=== PATIENT | female | born 1950 | race Two or more races ===

== ENCOUNTER 2018-09-18 11:12 | Day surgery (SDC) | payer MEDICARE, MEDICAID ==
[2018-09-18] MEDS ORDERED: IV LACTATED RINGERS SOLUTION 1,000 ML BAG IV ONE (11:13)
[2018-09-18] MEDS ORDERED: PROPOFOL 200 MG/20 ML BOTTLE IV ONE (11:13)
[2018-09-18] MEDS ORDERED: LIDOCAINE HCL 2% 20 ML VIAL MC ONE (11:13)
[2018-09-18 12:38] LABS: BASOPHILS % (AUTO) 0.4 % (0.0-2.0); EOSINOPHILS # (AUTO) 0.1 K/uL (0.0-0.7); EOSINOPHILS % (AUTO) 2.5 % (0.0-7.0); HEMATOCRIT 40.9 % (31.2-41.9); HEMOGLOBIN 13.6 g/dL (10.9-14.3); LYMPHOCYTES # (AUTO) 1.7 K/uL (20.0-40.0); MEAN CORPUSCULAR HEMOGLOBIN 29.8 uug (24.7-32.8); MEAN CORPUSCULAR HGB CONC 33 g/dL (32.3-35.6); MEAN CORPUSCULAR VOLUME 89.6 fL (75.5-95.3); MONOCYTES # (AUTO) 0.4 K/uL (2.0-10.0); MONOCYTES % (AUTO) 7.2 % (0.0-11.0); NEUTROPHILS # (AUTO) 3.2 K/uL (1.8-8.9); NEUTROPHILS % (AUTO) 57.9 % (38.5-71.5); PLATELET COUNT (AUTO) 242 K/uL (179-408); RED BLOOD CELL COUNT(AUTO) 4.56 MIL/uL (3.63-4.92); WHITE BLOOD COUNT (AUTO) 5.5 K/uL (3.8-11.8)
[2018-09-18 12:41] LABS: *BILIRUBIN,URIN NEGATIVE (NEGATIVE); *BLOOD, URINE Trace-intact (NEGATIVE); *CLARITY,URINE CLEAR (CLEAR); *COLOR,URINE YELLOW (YELLOW); *KETONES,URINE NEGATIVE (NEGATIVE); *UROBILINOGEN,URINE 0.2 E.U./dl (NORMAL); LEUKOCYTE ESTERASE ,URINE NEGATIVE (NEGATIVE); NITRITE, URINE NEGATIVE (NEGATIVE); PH,URINE 8.5 (5.0-8.0); UGLUCOSE NEGATIVE (NEGATIVE)
[2018-09-18 12:43] LABS: BACTERIA,URINE FEW /HPF (NONE SEEN); RBC,URINE 0-3 /HPF (0-3); SQUAMOUS EPITHELIAL CELL,UR FEW /HPF (NONE SEEN); WBC,URINE 0-3 /HPF (0-3)
[2018-09-18 12:45] LABS: CREATININE 0.7 mg/dL (0.6-1.3); POTASSIUM 4.3 mmol/L (3.5-5.1)
[2018-09-18 12:51] LABS: BILIRUBIN,TOTAL 0.4 mg/dL (0.2-1.0); TOTAL PROTEIN, SERUM 7.8 g/dL (6.4-8.2)
[2018-09-18] MEDS ORDERED: PROPOFOL 200 MG/20 ML BOTTLE ONE (14:20)
== END 2018-09-18 15:35 | disposition home or self-care (01) ==
LOC: DS 11:12
PROVIDERS: ATTEND Internal Medicine Gastroenterology
DX: K64.8 Other hemorrhoids (principal); K62.4 Stenosis of anus and rectum; K62.89 Other specified diseases of anus and rectum; E03.9 Hypothyroidism, unspecified; K21.9 Gastro-esophageal reflux disease without esophagitis; G89.29 Other chronic pain; Z79.899 Other long term (current) drug therapy; Z98.890 Other specified postprocedural states; I51.7 Cardiomegaly; Z79.01 Long term (current) use of anticoagulants; R19.4 Change in bowel habit
CPT/HCPCS: 36415; 45378; 71045; 80053; 81001; 85025; 85730; 93005; J3490; J7120 ×2; A4217; A4663

== ENCOUNTER 2021-05-13 09:24 | Inpatient (IN) | payer MEDICARE, OTHER ==
[~2021-05-13] VITALS: Ht 152.4 cm; Wt 82.6 kg
--- NOTE | 2021-05-13 09:29 | NUR ---
Patient brought in by [facility] transport for layo-psyche, no behaviors noted at this time, MD at bedside for assessment
[2021-05-13 10:17] LABS: MEAN CORPUSCULAR HEMOGLOBIN 31.6 uug (24.7-32.8); MEAN CORPUSCULAR VOLUME 93.6 fL (75.5-95.3); PLATELET COUNT (AUTO) 239 K/uL (179-408)
[2021-05-13 10:23] LABS: CARBON DIOXIDE 30 mmol/L (21-32); CHLORIDE 103 mmol/L (98-107); CREATININE 0.8 mg/dL (0.6-1.3); GLUCOSE 130 mg/dL (74-106); POTASSIUM 4.1 mmol/L (3.5-5.1); UREA NITROGEN, BLOOD 15 mg/dL (7-18)
[2021-05-13 10:29] LABS: ALANINE AMINOTRANSFERASE 53 U/L (14-59); ALKALINE PHOSPHATASE 59 U/L (50-136); ASPARTATE AMINOTRANSFERASE 28 U/L (15-37); BILIRUBIN,DIRECT 0.1 mg/dL (0.0-0.2); BILIRUBIN,TOTAL 0.3 mg/dL (0.2-1.0); CREATINE KINASE, TOTAL 727 U/L (26-192); TOTAL PROTEIN, SERUM 6.7 g/dL (6.4-8.2)
[2021-05-13 10:30] LABS: ACETAMINOPHEN < 2.0 ug/mL (10-30)
[2021-05-13 10:33] LABS: ETHANOL < 3 MG/DL (0-0)
--- NOTE | 2021-05-13 10:33 | NUR ---
patient noted resting in bed at this time, awaiting urine sample
[2021-05-13 11:35] LABS: *BILIRUBIN,URIN NEGATIVE (NEGATIVE); *BLOOD, URINE TRACE (NEGATIVE); *CLARITY,URINE CLEAR (CLEAR); *COLOR,URINE YELLOW (YELLOW); *KETONES,URINE NEGATIVE (NEGATIVE); *UROBILINOGEN,URINE 0.2 E.U./dl (NORMAL); LEUKOCYTE ESTERASE ,URINE NEGATIVE (NEGATIVE); NITRITE, URINE NEGATIVE (NEGATIVE); PH,URINE 8.5 (5.0-8.0); UGLUCOSE NEGATIVE (NEGATIVE)
[2021-05-13 11:45] LABS: *AMPHETAMINE, URINE NEGATIVE (NEGATIVE); *CANNABINOID, URINE NEGATIVE (NEGATIVE); *COCCAINE, URINE NEGATIVE (NEGATIVE); *OPIATE, URINE NEGATIVE (NEGATIVE); *PHENCYCLIDINE SCREEN,URINE NEGATIVE (NEGATIVE)
[2021-05-13] MEDS ORDERED: CALC1TAB30 PO (12:13)
[2021-05-13] MEDS ORDERED: SOLI10TA2 PO (12:13)
[2021-05-13] MEDS ORDERED: CARV3.122 PO (12:13)
[2021-05-13] MEDS ORDERED: DOCU100C36 PO (12:13)
[2021-05-13] MEDS ORDERED: LISI-782 PO (12:13)
[2021-05-13] MEDS ORDERED: ASPI81TA31 PO (12:13)
[2021-05-13] MEDS ORDERED: AMOX-430 PO (12:13)
[2021-05-13] MEDS ORDERED: SIMV10TA98 PO (12:13)
[2021-05-13] MEDS ORDERED: SENN1TAB77 PO (12:13)
[2021-05-13] MEDS ORDERED: THYR60TA2 PO (12:13)
[2021-05-13] MEDS ORDERED: OMEP40CA21 PO (12:13)
[2021-05-13] MEDS ORDERED: SERT25TA PO (12:13)
--- NOTE | 2021-05-13 13:30 | NUR ---
Awaiting returned call to give report to U
[2021-05-13 14:26] LABS: BACTERIA,URINE NONE SEEN /HPF (NONE SEEN); RBC,URINE 0-3 /HPF (0-3); SQUAMOUS EPITHELIAL CELL,UR FEW /HPF (NONE SEEN); URINE AMORPHOUS PHOSPHATES FEW /HPF; WBC,URINE 0-3 /HPF (0-3)
--- NOTE | 2021-05-13 15:00 | NUR ---
IM ativan given in left deltoid
[2021-05-13] MEDS ORDERED: LORAZEPAM 2 MG/1 ML VIAL ONE (15:20)
--- NOTE | 2021-05-13 15:20 | NUR ---
Report given to [facility]
[2021-05-13 16:00] VITALS: BP 107/54
[2021-05-13] MEDS ORDERED: LORAZEPAM 2 MG/1 ML VIAL IM ONE (16:00)
--- NOTE | 2021-05-13 16:10 | NUR ---
Pt. admitted to [facility] psych, under care of Dr. hinson and josefina Belongs List completed and all belongs sent with patient
--- NOTE | 2021-05-13 17:00 | NUR ---
Gps/Waterworks Supervisor-Received report from [facility]. Patient arrived from the unit via wheel chair. Alert, oriented x 4, somewhat forgetful. Upon face to face interactions with patient noted > anxious, figity, closes eye and appeared sleepy, as noted pt. received ativan 1 mg IM in the ER. Patient was able to give informations during her admission. She claimed she took 20 pills of Angel Fire 10/325 mg r/t to too much pain on her right hip she cant take anymore/Claimed there is a caregiver that comes few hours to help her . Noted edema to her left lower ext. , wearing elastic compression stocking on her left leg r/t to lymphedema . Denies S.I. at this time. Patient wants to go to assigned room claimed she's just feeling tired, oriented to the unit settings.
[2021-05-13] MEDS ORDERED: MAGNESIUM HYDROXIDE 30 ML LIQUID UDC PO PRN (20:00)
[2021-05-13 20:19] VITALS: BP 130/78
[2021-05-13] MEDS: TEMAZEPAM 7.5 MG CAPSULE PO PRN (23:13)
--- NOTE | 2021-05-14 06:15 | NUR ---
Slept 3.45 hours only. Always seen ambulating in the hallways or in her room. Restoril was given as needed and ordered with help.
[2021-05-14 08:09] VITALS: BP 121/64
[2021-05-14 08:17] LABS: HEMATOCRIT 39.1 % (31.2-41.9); MEAN CORPUSCULAR HEMOGLOBIN 31.7 uug (24.7-32.8); MEAN CORPUSCULAR VOLUME 93.5 fL (75.5-95.3); PLATELET COUNT (AUTO) 239 K/uL (179-408)
[2021-05-14 08:44] LABS: THYROID STIMULATING HORMONE 6.127 mIU/mL (0.358-3.740)
[2021-05-14 09:02] LABS: BILIRUBIN,TOTAL 0.3 mg/dL (0.2-1.0); CREATININE 0.8 mg/dL (0.6-1.3); MAGNESIUM 2.3 mg/dL (1.8-2.4); PHOSPHOROUS 3.2 mg/dL (2.5-4.9); POTASSIUM 4.3 mmol/L (3.5-5.1); TOTAL PROTEIN, SERUM 6.9 g/dL (6.4-8.2)
[2021-05-14] MEDS: CALCIUM CARB/VITAMIN D 500MG-200UNITS TABLET PO SCH (09:08)
[2021-05-14] MEDS: DOCUSATE SODIUM 100 MG CAPSULE PO SCH (09:08)
[2021-05-14] MEDS: THYROID 60 MG TABLET PO SCH (09:09)
[2021-05-14] MEDS: ASPIRIN 81 MG TAB.CHEW PO SCH (09:09)
[2021-05-14] MEDS: LISINOPRIL 5 MG TABLET PO SCH (09:09)
[2021-05-14] MEDS: CARVEDILOL 3.125 MG TABLET PO SCH ×2 (09:09→17:48)
[2021-05-14] MEDS: SENNOSIDES/DOCUSATE SODIUM TABLET PO SCH ×2 (09:10→17:48)
[2021-05-14] MEDS: AMOXICILLIN-CLAVUL 875-125MG TABLET PO SCH ×2 (09:10→17:48)
[2021-05-14] MEDS: OXYBUTYNIN CHLORIDE 5 MG TABLET PO SCH ×3 (09:10→17:48)
[2021-05-14] MEDS: DIVALPROEX 250 MG TABLET.DR PO SCH ×2 (12:19→20:20)
[2021-05-14 17:23] VITALS: BP 111/75
[2021-05-14] MEDS ORDERED: BIMA2.5D5 EACHEYE (18:04)
[2021-05-14 20:08] VITALS: BP 106/67
[2021-05-14] MEDS: TEMAZEPAM 7.5 MG CAPSULE PO PRN (21:37)
[2021-05-15] MEDS: THYROID 60 MG TABLET PO SCH (06:27)
[2021-05-15 07:59] VITALS: BP 138/76
[2021-05-15] MEDS: ASPIRIN 81 MG TAB.CHEW PO SCH (08:17)
[2021-05-15] MEDS: DOCUSATE SODIUM 100 MG CAPSULE PO SCH (08:17)
[2021-05-15] MEDS: AMOXICILLIN-CLAVUL 875-125MG TABLET PO SCH ×2 (08:18→16:53)
[2021-05-15] MEDS: SENNOSIDES/DOCUSATE SODIUM TABLET PO SCH ×2 (08:18→16:53)
[2021-05-15] MEDS: CALCIUM CARB/VITAMIN D 500MG-200UNITS TABLET PO SCH (08:18)
[2021-05-15] MEDS: LISINOPRIL 5 MG TABLET PO SCH (08:19)
[2021-05-15] MEDS: DIVALPROEX 250 MG TABLET.DR PO SCH ×2 (08:20→16:53)
[2021-05-15] MEDS: CARVEDILOL 3.125 MG TABLET PO SCH ×2 (08:20→16:54)
[2021-05-15] MEDS: OXYBUTYNIN CHLORIDE 5 MG TABLET PO SCH ×3 (08:20→16:53)
--- NOTE | 2021-05-15 14:01 | NUR ---
GPS: Nursing Notes: Mood Disturbance: Depression: Patient is awake and responding to her name, poor impulse control, argumentative, overly demanding, gets easily irritable when redirected, anxious affect, calling her sister and asking her to bring her more cloth and wigs to the unit, setting limits, redirected, but continue to be argumentative, not following directions from staff, needs a lot of prompting to be compliant with her medications, depressed mood and anxious affect, unable to formulate a viable plan for self care, encouraged to participate in therapeutic groups, in and out of therapeutic groups, continue to monitor for safety, continue with treatment plan.
[2021-05-15 16:33] VITALS: BP 126/72
[2021-05-15] MEDS: MAG HYDROX/AL HYDROX/SIMETH 30 ML LIQUID UDC PO PRN (19:52)
[2021-05-15 20:15] VITALS: BP 132/70
[2021-05-15] MEDS: BIMATOPROST 0.01% EACHEYE SCH (20:47)
[2021-05-15] MEDS: LORAZEPAM 0.5 MG TABLET PO PRN (20:47)
[2021-05-15] MEDS: DIVALPROEX 500 MG TABLET.DR PO SCH (20:48)
[2021-05-15] MEDS ORDERED: risperiDONE 0.5 MG TABLET PO SCH (21:00)
[2021-05-15] MEDS: TEMAZEPAM 7.5 MG CAPSULE PO PRN (21:44)
--- NOTE | 2021-05-16 04:30 | NUR ---
Received patient at the start of the shift, anxious and needy. Multiple requests from the patient for a variety of things. The patient is hyperverbal and is a poor listener . This senior writer was continually cut off by the patient when attempting to answer a question or explain something. The patient has a strong sense of entitlement, and has difficulty following the unit rules. When asked about her SA , the patient minimizes the topic and is quick to change the subject. This senior writer was able to make a verbal contract for safety with the patient for the shift. Frequent rounding done and no acute issues noted so far.
[2021-05-16] MEDS: THYROID 60 MG TABLET PO SCH (06:24)
[2021-05-16 07:54] VITALS: BP 120/54
[2021-05-16] MEDS: CALCIUM CARB/VITAMIN D 500MG-200UNITS TABLET PO SCH (08:23)
[2021-05-16] MEDS: OXYBUTYNIN CHLORIDE 5 MG TABLET PO SCH ×3 (08:23→16:12)
[2021-05-16] MEDS: DIVALPROEX 250 MG TABLET.DR PO SCH (08:23)
[2021-05-16] MEDS: AMOXICILLIN-CLAVUL 875-125MG TABLET PO SCH ×2 (08:23→16:12)
[2021-05-16] MEDS: ASPIRIN 81 MG TAB.CHEW PO SCH (08:23)
[2021-05-16] MEDS: SENNOSIDES/DOCUSATE SODIUM TABLET PO SCH ×2 (08:24→16:22)
[2021-05-16] MEDS: LISINOPRIL 5 MG TABLET PO SCH (08:24)
[2021-05-16] MEDS: CARVEDILOL 3.125 MG TABLET PO SCH ×2 (08:24→16:22)
[2021-05-16] MEDS: DOCUSATE SODIUM 100 MG CAPSULE PO SCH (08:24)
[2021-05-16] MEDS: OLANZAPINE 2.5 MG TABLET PO SCH (11:11)
--- NOTE | 2021-05-16 11:47 | NUR ---
SPENCER Initial Discharge Planning Patient currently resides [place] home at [address], [place] [address] ([phone]). SPENCER met with pt to discuss discharge planning and pt reports she wants to go home though she states her doctor also discussed rehab option. SPENCER will f/u with pt's brother Morgan ([phone]) and Dr. Cm to discuss discharge.
--- NOTE | 2021-05-16 11:49 | NUR ---
SW Family Contact SW left a voicemail for patient's brother Morgan ([phone]) requesting call back to discuss treatment and discharge plan. Waiting for a call back.
[2021-05-16 16:29] VITALS: BP 125/67
[2021-05-16] MEDS ORDERED: INFLUENZA VACCINE 2021-2022 0.5 ML DISP.SYRIN IM ONE (18:15)
[2021-05-16 20:10] VITALS: BP 103/52
[2021-05-16] MEDS: DIVALPROEX 500 MG TABLET.DR PO SCH (20:31)
[2021-05-16] MEDS: BIMATOPROST 0.01% EACHEYE SCH (20:39)
[2021-05-16] MEDS ORDERED: OLANZAPINE 5 MG TABLET PO SCH (21:00)
[2021-05-16] MEDS: MAG HYDROX/AL HYDROX/SIMETH 30 ML LIQUID UDC PO PRN (21:34)
[2021-05-16] MEDS: TEMAZEPAM 7.5 MG CAPSULE PO PRN (21:34)
[2021-05-17] MEDS: LORAZEPAM 0.5 MG TABLET PO PRN (00:06)
[2021-05-17] MEDS: THYROID 60 MG TABLET PO SCH (06:16)
[2021-05-17 07:30] VITALS: BP 133/57
[2021-05-17] MEDS: OLANZAPINE 2.5 MG TABLET PO SCH (08:46)
[2021-05-17] MEDS: CALCIUM CARB/VITAMIN D 500MG-200UNITS TABLET PO SCH (08:46)
[2021-05-17] MEDS: OXYBUTYNIN CHLORIDE 5 MG TABLET PO SCH ×3 (08:46→17:10)
[2021-05-17] MEDS: LISINOPRIL 5 MG TABLET PO SCH (08:46)
[2021-05-17] MEDS: ASPIRIN 81 MG TAB.CHEW PO SCH (08:46)
[2021-05-17] MEDS: CARVEDILOL 3.125 MG TABLET PO SCH ×2 (08:46→17:11)
[2021-05-17] MEDS: DIVALPROEX 250 MG TABLET.DR PO SCH (08:46)
[2021-05-17] MEDS: SENNOSIDES/DOCUSATE SODIUM TABLET PO SCH ×2 (08:47→17:00)
[2021-05-17] MEDS: DOCUSATE SODIUM 100 MG CAPSULE PO SCH (08:47)
[2021-05-17] MEDS: MAG HYDROX/AL HYDROX/SIMETH 30 ML LIQUID UDC PO PRN ×3 (10:17→22:37)
[2021-05-17 15:09] VITALS: BP 109/58
[2021-05-17 20:00] VITALS: BP 101/59
[2021-05-17] MEDS: DIVALPROEX 500 MG TABLET.DR PO SCH (20:58)
[2021-05-17] MEDS ORDERED: OLANZAPINE 5 MG TABLET PO SCH (21:00)
[2021-05-17] MEDS: BIMATOPROST 0.01% EACHEYE SCH (21:03)
[2021-05-17] MEDS: TEMAZEPAM 7.5 MG CAPSULE PO PRN (22:37)
[2021-05-18] MEDS: THYROID 60 MG TABLET PO SCH (06:29)
--- NOTE | 2021-05-18 06:33 | NUR ---
GPS: Pt.slept for only 3.30 last night despite receiving Restoril med for insomnia. Remains needy,demanding,easily irritable when her wishes are not granted immediately. Insight and judgement remains impaired. Safety emphasized. Will continue to re-direct prn.
--- NOTE | 2021-05-18 07:30 | NUR ---
Received report from OLIVIA Ventura. All questions, comments, and concerns addressed. Received patient awake, alert and oriented in her assigned bed. Bed is in low and locked position.
[2021-05-18 07:48] VITALS: BP 126/61
[2021-05-18] MEDS: OLANZAPINE 2.5 MG TABLET PO SCH (08:34)
[2021-05-18] MEDS: ASPIRIN 81 MG TAB.CHEW PO SCH (08:34)
[2021-05-18] MEDS: CALCIUM CARB/VITAMIN D 500MG-200UNITS TABLET PO SCH (08:34)
[2021-05-18] MEDS: DIVALPROEX 250 MG TABLET.DR PO SCH ×2 (08:35→12:33)
[2021-05-18] MEDS: CARVEDILOL 3.125 MG TABLET PO SCH ×2 (08:35→17:00)
[2021-05-18] MEDS: DOCUSATE SODIUM 100 MG CAPSULE PO SCH (08:35)
[2021-05-18] MEDS: OXYBUTYNIN CHLORIDE 5 MG TABLET PO SCH ×3 (08:36→17:00)
[2021-05-18] MEDS: LISINOPRIL 5 MG TABLET PO SCH (08:36)
[2021-05-18] MEDS: SENNOSIDES/DOCUSATE SODIUM TABLET PO SCH ×2 (08:43→17:00)
--- NOTE | 2021-05-18 12:22 | NUR ---
SW Family Contact SW spoke with patient's brother, Morgan ([phone]) and discussed treatment and discharge plan. Morgan stated he is pt's DPOA and this SW requested copies. Morgan would like SNF placement for the patient. SW will coordinate appropriate placement options.
--- NOTE | 2021-05-18 12:25 | NUR ---
SW SNF Referral SW faxed patient's referral packet to [facility] [address] , [place] [address] ( ) attention to Emily for review.
--- NOTE | 2021-05-18 16:54 | NUR ---
Patient is alert and oriented. Patient is needy, anxious, demanding, and argumentative with staff. Patient requires limit setting and redirection for intrusive behaviors. Patient is cooperative with redirection. Patient is compliant with medication, no adverse reaction noted. Patient denies SI/HI, denies AH/VH. Patient is able to ambulate independently. able to feed self and perform self care and ADL's independently. patient is encouraged to participate in the unit therapeutic milieu and groups. patient encouraged to communicate needs to staff appropriately.
[2021-05-18 17:20] VITALS: BP 107/49
[2021-05-18] MEDS: DIVALPROEX 500 MG TABLET.DR PO SCH (20:37)
[2021-05-18] MEDS ORDERED: OLANZAPINE 5 MG TABLET PO SCH (21:00)
[2021-05-18] MEDS: BIMATOPROST 0.01% EACHEYE SCH (21:05)
[2021-05-18 21:09] VITALS: BP 139/78
[2021-05-18] MEDS: TEMAZEPAM 7.5 MG CAPSULE PO PRN (21:38)
--- NOTE | 2021-05-18 22:00 | NUR ---
RECEIVED PATIENT IN HER ROOM, SHE IS NOTED EASILY IRRITABLE, DEMANDING, ARGUMENTATIVE. SHE US NOTED WITH MULTIPLE REQUESTS, SHE IS ATTENTION SEEKER AND NEEDY. SHE NEEDS CONSTANT REDIRECTION LIMITATION SETTING. SHE IS NOTED WITH POOR INSIGHT AND JUDGMENT TO THE REASON FOR HER ADMISSION TO [facility]. HOWEVER, SHE VERBALLY DENIED SI/HI/VH/AH SHE IS ABLE TO CFS. V/S STABLE. SHE WAS GIVEN PO FLUIDS AND SNACKS. SHE IS REASSURED FOR HER SAFETY, SAFETY AND FALL PRECAUTION ARE IN PLACE. WILL CONTINUE TO MONITOR.
[2021-05-18] MEDS: LORAZEPAM 0.5 MG TABLET PO PRN (22:50)
[2021-05-19] MEDS: THYROID 60 MG TABLET PO SCH (06:18)
[2021-05-19 06:50] LABS: BILIRUBIN,TOTAL 0.2 mg/dL (0.2-1.0); CREATININE 0.8 mg/dL (0.6-1.3); POTASSIUM 4.1 mmol/L (3.5-5.1); TOTAL PROTEIN, SERUM 7.6 g/dL (6.4-8.2)
--- NOTE | 2021-05-19 06:54 | NUR ---
PATIENT SLEPT FOR APPROX 5.00 HRS THROUGH THE NIGHT. SHE IS COMPLIANT WITH MEDICATION REGIMENT. SHE CONTINUE NEEDY, DEMANDING, ARGUMENTATIVE AND EASILY IRRITABLE. SHE REQUIRED MULTIPLE REDIRECTION. WILL CONTINUE TO MONITOR.
[2021-05-19 07:43] LABS: HEMATOCRIT 41.8 % (31.2-41.9); MEAN CORPUSCULAR HEMOGLOBIN 31.9 uug (24.7-32.8); MEAN CORPUSCULAR VOLUME 95.8 fL (75.5-95.3); PLATELET COUNT (AUTO) 251 K/uL (179-408)
[2021-05-19 08:00] VITALS: BP 142/76
[2021-05-19] MEDS: DIVALPROEX 250 MG TABLET.DR PO SCH ×2 (08:55→12:10)
[2021-05-19] MEDS: CALCIUM CARB/VITAMIN D 500MG-200UNITS TABLET PO SCH ×2 (08:55→09:00)
[2021-05-19] MEDS: SENNOSIDES/DOCUSATE SODIUM TABLET PO SCH ×3 (08:55→18:31)
[2021-05-19] MEDS: LISINOPRIL 5 MG TABLET PO SCH (08:56)
[2021-05-19] MEDS: ASPIRIN 81 MG TAB.CHEW PO SCH (08:56)
[2021-05-19] MEDS: DOCUSATE SODIUM 100 MG CAPSULE PO SCH ×2 (08:56→09:00)
[2021-05-19] MEDS: OXYBUTYNIN CHLORIDE 5 MG TABLET PO SCH ×4 (08:56→18:31)
[2021-05-19] MEDS: CARVEDILOL 3.125 MG TABLET PO SCH ×2 (08:56→17:00)
[2021-05-19] MEDS: ACETAMINOPHEN 325 MG TABLET PO PRN (08:59)
--- NOTE | 2021-05-19 09:43 | NUR ---
GPS: JAYLON HASSAN CALLED ABOUT PT, REQUESTING TO GIVE PT A WALKER PT HAVE A KNEE IMPLANT AND NEEDS IT FOR ASSISTANCE FOR WALKING IT WILL GIVE PRESSURE IF NOT USING ONE. TALKED TO PT AND WILL MAKE AN ORDER FOR EVALUATION. PT FAMILY SAID HE HAS A LOT OF CONTACT AND HE DOES NOT WANT NURSES TO BE IN TROUBLE. HE SAID HE WILL BE HERE TO VISIT PT AND GET STRAIGHTEN IT OUT. PT REFUSING SHOWER.
--- NOTE | 2021-05-19 10:37 | NUR ---
GPS: PT COURT HEARING DONE AND 14D HOLD IN EFFECT.
--- NOTE | 2021-05-19 12:39 | NUR ---
Gps/Glass Tube Bender- Stayed in the dinning room during her lunch, brother came in to visit. Reviewed routiine medications, requesting some meds. needed to be taken at bedtime, reviewed with Pharmacy Carmen in changing times/schedule .
[2021-05-19 16:00] VITALS: BP 98/53
[2021-05-19 20:00] VITALS: BP 140/66
[2021-05-19] MEDS ORDERED: OLANZAPINE 5 MG TABLET PO SCH (21:00)
[2021-05-19] MEDS ORDERED: DIVALPROEX 250 MG TABLET.DR PO SCH (21:00)
[2021-05-19] MEDS: BIMATOPROST 0.01% EACHEYE SCH (21:44)
[2021-05-20] MEDS: LORAZEPAM 0.5 MG TABLET PO PRN ×2 (03:56→22:13)
[2021-05-20] MEDS: ACETAMINOPHEN 325 MG TABLET PO PRN (03:57)
[2021-05-20] MEDS: THYROID 60 MG TABLET PO SCH (06:10)
--- NOTE | 2021-05-20 06:30 | NUR ---
GPS: Pt.slept for 3.15 last night. Continues to be needy,demanding,and fixated on her clothing. Argumentative with staff when being re-directed. Has poor insight and impaired judgement. Safety emphasized. Will continue to monitor.
[2021-05-20 07:30] VITALS: BP 98/80
[2021-05-20] MEDS: DIVALPROEX 250 MG TABLET.DR PO SCH ×2 (08:52→12:48)
[2021-05-20] MEDS: LISINOPRIL 5 MG TABLET PO SCH (08:52)
[2021-05-20] MEDS: ASPIRIN 81 MG TAB.CHEW PO SCH (08:52)
[2021-05-20] MEDS: SENNOSIDES/DOCUSATE SODIUM TABLET PO SCH ×2 (08:52→17:00)
[2021-05-20] MEDS: DOCUSATE SODIUM 100 MG CAPSULE PO SCH (08:52)
[2021-05-20] MEDS: CARVEDILOL 3.125 MG TABLET PO SCH ×2 (08:53→16:40)
[2021-05-20] MEDS: CALCIUM CARB/VITAMIN D 500MG-200UNITS TABLET PO SCH ×2 (08:53→20:47)
[2021-05-20] MEDS: OXYBUTYNIN CHLORIDE 5 MG TABLET PO SCH ×3 (08:53→17:00)
--- NOTE | 2021-05-20 13:42 | NUR ---
SW Family Contact SW returned call from pt's brother Morgan ([phone]) and provided updates regarding discharge plan. Pt's brother is agreeable with discharge plan.
--- NOTE | 2021-05-20 13:43 | NUR ---
SW Facility Contact SW spoke with Alana campaign marketing manager ([phone]) at [address] [address] ([phone]) and confirmed pt is accepted for Sunday05/23/21 discharge.
--- NOTE | 2021-05-20 13:44 | NUR ---
SW Discharge Planning Patient will be discharged to [facility] [address] [place] [address] ([phone]). Pt is aware and agreeable with discharge plan. Patient is alert and oriented x4. Patient denies suicidal or homicidal ideation. Patient presents with appropriate mood and congruent affect. Patient will follow-up at the facility with Dr. Cm Psychiatrist and Dr. Supervisor Post Wave Dr. Kenneth Beaulieu ([phone]). Patients brotherMorgan ([phone]) is made aware and is agreeable with discharge plan.
[2021-05-20 16:00] VITALS: BP 146/74
--- NOTE | 2021-05-20 17:00 | NUR ---
Gps/Senior Java Web Developer- Noted patient holding her own Credit Card(Visa), claimed she had it all along in her pocking and she was using it to pay her bills. Agreed to keep her credit card in the safe/
[2021-05-20 20:21] VITALS: BP 121/56
[2021-05-20] MEDS: BIMATOPROST 0.01% EACHEYE SCH (20:55)
[2021-05-20] MEDS ORDERED: OLANZAPINE 5 MG TABLET PO SCH (21:00)
--- NOTE | 2021-05-20 23:00 | NUR ---
received to care,, lying in bed, isolative with peers. remains focused on issues with the times that her medications are scheduled. she was told that this would be addressed with the doctor tomorrow, but she remains fixed on this issue, yelling at times, requiring frequent redirection/ reassurance. compliant with medications. PRN ativan given at 2213 for increasing anxiety. as of now, she is awake, but sleeping intermittently. will continue to monitor closely.
[2021-05-20] MEDS: TEMAZEPAM 7.5 MG CAPSULE PO PRN (23:33)
--- NOTE | 2021-05-21 00:33 | NUR ---
PRN restoril given at 2330, for inability to sleep. as of now, is asleep. no distress noted.
[2021-05-21] MEDS: ACETAMINOPHEN 325 MG TABLET PO PRN (05:47)
[2021-05-21] MEDS: LORAZEPAM 0.5 MG TABLET PO PRN (05:47)
--- NOTE | 2021-05-21 05:48 | NUR ---
patient has barely slept all night, intermittently yelling, requiring frequent redirection. PRN ativan was given. will continue to monitor
--- NOTE | 2021-05-21 06:00 | NUR ---
slept 3.25 hours, total. remains awake, and restless. needs frequent redirection. will continue to monitor closely.
[2021-05-21] MEDS: THYROID 60 MG TABLET PO SCH (06:28)
[2021-05-21 07:30] VITALS: BP 146/91
[2021-05-21] MEDS ORDERED: DIVALPROEX 250 MG TABLET.DR PO SCH (08:00)
[2021-05-21] MEDS: ASPIRIN 81 MG TAB.CHEW PO SCH (08:42)
[2021-05-21] MEDS: SENNOSIDES/DOCUSATE SODIUM TABLET PO SCH ×2 (08:42→17:00)
[2021-05-21] MEDS: DOCUSATE SODIUM 100 MG CAPSULE PO SCH (08:42)
[2021-05-21] MEDS: OXYBUTYNIN CHLORIDE 5 MG TABLET PO SCH ×3 (08:43→17:00)
[2021-05-21] MEDS: CARVEDILOL 3.125 MG TABLET PO SCH ×2 (08:43→17:24)
[2021-05-21] MEDS: LISINOPRIL 5 MG TABLET PO SCH (08:44)
--- NOTE | 2021-05-21 09:45 | NUR ---
Gps/Cotton Ball Machine Tender- SENIOR COUNSEL Dario found terry cloth cutter hand merary in her room with bunch of medicines( Pepcid , alkazeltzer, Vit D3 , Zinc ) removed from patient informed will keep in her locker and reassured will give them back to her when she leaves , also found trinh .
[2021-05-21 16:00] VITALS: BP 111/54
[2021-05-21 20:00] VITALS: BP 115/68
[2021-05-21] MEDS: OLANZAPINE 5 MG TABLET PO SCH (20:36)
[2021-05-21] MEDS: CALCIUM CARB/VITAMIN D 500MG-200UNITS TABLET PO SCH (20:36)
[2021-05-21] MEDS: TEMAZEPAM 7.5 MG CAPSULE PO PRN (21:50)
[2021-05-21] MEDS: BIMATOPROST 0.01% EACHEYE SCH (21:50)
[2021-05-22] MEDS: LORAZEPAM 0.5 MG TABLET PO PRN (00:33)
--- NOTE | 2021-05-22 05:59 | NUR ---
PATIENT SLEEP INTERMITTENTLY, REQUIRES FREQUENT REDIRECTING, REQUEST SLEEPING MEDS WITH HELP, SLEEPING MEDS WORKING AT THIS TIME, CONT TO MONITOR.
[2021-05-22] MEDS: THYROID 60 MG TABLET PO SCH (06:27)
[2021-05-22] MEDS: PANTOPRAZOLE SODIUM 40 MG TABLET.DR PO SCH (06:27)
--- NOTE | 2021-05-22 07:16 | NUR ---
PATIENT SLEPT 6.0 CONT TO MONITOR.
[2021-05-22 07:30] VITALS: BP 146/62
[2021-05-22] MEDS: OXYBUTYNIN CHLORIDE 5 MG TABLET PO SCH ×3 (09:00→17:00)
[2021-05-22] MEDS: DOCUSATE SODIUM 100 MG CAPSULE PO SCH (09:12)
[2021-05-22] MEDS: CARVEDILOL 3.125 MG TABLET PO SCH ×2 (09:12→17:26)
[2021-05-22] MEDS: LISINOPRIL 5 MG TABLET PO SCH (09:13)
[2021-05-22] MEDS: SENNOSIDES/DOCUSATE SODIUM TABLET PO SCH ×2 (09:14→17:00)
[2021-05-22] MEDS: ASPIRIN 81 MG TAB.CHEW PO SCH (09:14)
--- NOTE | 2021-05-22 09:27 | NUR ---
PT NOTED WITH MULTIPLE COMPLAINTS AT THIS TIME. COMPLAINING ABOUT THE FOOD, MEDICATIONS, HER HOSPITALIZATIONS, ETC. NOTHING SEEMS TO SATISFY HER NEEDS AND COMPLAINTS. PT ALSO NOTED HIGHLY VERBALLY ABUSIVE TO ASSISTANT PASTRY CHEF WHO SPEAKS FARSI WELL, TELLING THE ASSISTANT PASTRY CHEF "I HOPE YOU " AND "YOU SHOULD ALWAYS BE ON MY SIDE SINCE YOU'RE KOREAN TOO, YOU IDIOT." PT CONTINUES TO BE EXCESSIVELY NEEDY AND INTRUSIVE.
--- NOTE | 2021-05-22 09:30 | NUR ---
Gps/Network And Threat Support Specialist- Selective with her routine am. medications showing her own list of medications she's supposed to take . Educated and informed patient , that at times they change medications or equivalent Hosp. does not carry the same drugs. Patient verbalized understanding, then in few minutes she comes and asked the same questions. Gets loud when interacting with the staff claimed thats' how she talks. Encouraged to stay in her group tx.
[2021-05-22 16:00] VITALS: BP 133/62
[2021-05-22 20:00] VITALS: BP 127/73
[2021-05-22] MEDS: OLANZAPINE 5 MG TABLET PO SCH (20:14)
[2021-05-22] MEDS: CALCIUM CARB/VITAMIN D 500MG-200UNITS TABLET PO SCH (20:14)
[2021-05-22] MEDS: BIMATOPROST 0.01% EACHEYE SCH (20:17)
[2021-05-22] MEDS: TEMAZEPAM 7.5 MG CAPSULE PO PRN (22:20)
[2021-05-23] MEDS: LORAZEPAM 0.5 MG TABLET PO PRN ×2 (01:29→23:14)
[2021-05-23] MEDS: THYROID 60 MG TABLET PO SCH (06:03)
[2021-05-23] MEDS: PANTOPRAZOLE SODIUM 40 MG TABLET.DR PO SCH (06:03)
--- NOTE | 2021-05-23 06:16 | NUR ---
GPS: Pt.slept 6.15 last night. Remains needy,intrusive,demanding and argumentative when being re-directed. Insight and judgement remains impaired. Safety emphasized. Will continue to monitor.
[2021-05-23 08:32] VITALS: BP 135/77
[2021-05-23] MEDS: OXYBUTYNIN CHLORIDE 5 MG TABLET PO SCH ×3 (08:49→17:06)
[2021-05-23] MEDS: ASPIRIN 81 MG TAB.CHEW PO SCH (08:49)
[2021-05-23] MEDS: CARVEDILOL 3.125 MG TABLET PO SCH ×2 (08:50→17:00)
[2021-05-23] MEDS: DOCUSATE SODIUM 100 MG CAPSULE PO SCH (08:50)
[2021-05-23] MEDS: LISINOPRIL 5 MG TABLET PO SCH (08:50)
[2021-05-23] MEDS: SENNOSIDES/DOCUSATE SODIUM TABLET PO SCH ×2 (08:50→17:07)
[2021-05-23] MEDS: OXCARBAZEPINE 150 MG TABLET PO SCH ×3 (11:29→17:07)
--- NOTE | 2021-05-23 12:05 | NUR ---
SW SNF Contact SW spoke with Alana ([phone]) with [facility] [address] [facility], [place] [address] and informed pt's discharge has been postponed.
--- NOTE | 2021-05-23 12:07 | NUR ---
SW Family Contact SW spoke with pt's brother Morgan ([phone]) and informed pt's discharge has been postponed per MD Pt's brother verbalized understanding.
[2021-05-23] MEDS ORDERED: OXCARBAZEPINE 150 MG TABLET PO SCH (13:00)
[2021-05-23 16:17] VITALS: BP 92/63
[2021-05-23 20:00] VITALS: BP 113/55
[2021-05-23] MEDS: CALCIUM CARB/VITAMIN D 500MG-200UNITS TABLET PO SCH (20:10)
[2021-05-23] MEDS: OLANZAPINE 5 MG TABLET PO SCH (20:12)
[2021-05-23] MEDS: BIMATOPROST 0.01% EACHEYE SCH (21:21)
[2021-05-23] MEDS: TEMAZEPAM 7.5 MG CAPSULE PO PRN (22:12)
[2021-05-24] MEDS: THYROID 60 MG TABLET PO SCH (06:18)
[2021-05-24] MEDS: PANTOPRAZOLE SODIUM 40 MG TABLET.DR PO SCH (06:18)
[2021-05-24 07:30] VITALS: BP 116/56
[2021-05-24] MEDS: ASPIRIN 81 MG TAB.CHEW PO SCH (08:46)
[2021-05-24] MEDS: OXYBUTYNIN CHLORIDE 5 MG TABLET PO SCH ×3 (08:47→16:29)
[2021-05-24] MEDS: DOCUSATE SODIUM 100 MG CAPSULE PO SCH (08:47)
[2021-05-24] MEDS: SENNOSIDES/DOCUSATE SODIUM TABLET PO SCH ×2 (08:47→16:28)
[2021-05-24] MEDS: OXCARBAZEPINE 150 MG TABLET PO SCH ×3 (08:47→16:29)
[2021-05-24] MEDS: LISINOPRIL 5 MG TABLET PO SCH (08:48)
[2021-05-24] MEDS: CARVEDILOL 3.125 MG TABLET PO SCH ×2 (08:48→16:30)
[2021-05-24] MEDS: MAG HYDROX/AL HYDROX/SIMETH 30 ML LIQUID UDC PO PRN (12:04)
[2021-05-24 15:19] VITALS: BP 125/77
[2021-05-24] MEDS: ACETAMINOPHEN 325 MG TABLET PO PRN (18:52)
[2021-05-24] MEDS: CALCIUM CARB/VITAMIN D 500MG-200UNITS TABLET PO SCH (20:04)
[2021-05-24] MEDS: OLANZAPINE 5 MG TABLET PO SCH (20:04)
[2021-05-24 20:09] VITALS: BP 106/58
[2021-05-24] MEDS: BIMATOPROST 0.01% EACHEYE SCH (20:14)
[2021-05-24] MEDS: TEMAZEPAM 7.5 MG CAPSULE PO PRN (21:21)
[2021-05-25] MEDS: PANTOPRAZOLE SODIUM 40 MG TABLET.DR PO SCH (06:27)
[2021-05-25] MEDS: THYROID 60 MG TABLET PO SCH (06:28)
[2021-05-25 07:30] VITALS: BP 153/58
[2021-05-25] MEDS: OXCARBAZEPINE 150 MG TABLET PO SCH ×2 (08:24→12:55)
[2021-05-25] MEDS: DOCUSATE SODIUM 100 MG CAPSULE PO SCH (08:24)
[2021-05-25 08:25] VITALS: BP 153/58
[2021-05-25] MEDS: LISINOPRIL 5 MG TABLET PO SCH (08:25)
[2021-05-25] MEDS: SENNOSIDES/DOCUSATE SODIUM TABLET PO SCH (08:25)
[2021-05-25] MEDS: ASPIRIN 81 MG TAB.CHEW PO SCH (08:25)
[2021-05-25] MEDS: CARVEDILOL 3.125 MG TABLET PO SCH (08:25)
[2021-05-25] MEDS: OXYBUTYNIN CHLORIDE 5 MG TABLET PO SCH ×2 (08:26→12:55)
--- NOTE | 2021-05-25 09:48 | NUR ---
GPS: PT ALERT AND VERBALLY RESPONSIVE. WILL BE DISCHARGE TODAY. PT TOOK MEDICATION AND TOLERATED WELL. PT VERY NEEDY. WITH EDEMA +3 ON LEFT FOOT, ENCOURAGED PT TO ELEVATE HER FOOT ABOVE HEART LEVEL. DENIES ANY PAIN OR DISCOMFORT.
--- NOTE | 2021-05-25 10:44 | NUR ---
SPENCER Discharge Note Patient will be discharged to [facility] [address] [place] [address] ([phone]) today. SPENCER spoke with Jaclyn who confirmed they are ready to accept patient today. Patients brother Morgan ([phone]) has been informed of discharge plan. Patient is aware and agreeable with discharge plan. Patient is alert and oriented x4. Patient denies suicidal or homicidal ideation. Patient presents with appropriate mood and congruent affect. Patient will follow-up at the facility with Dr. Cm Psychiatrist and Dr. Crime Scene Analyst Dr. Kenneth Beaulieu ([phone]). Patient was provided referral to [facility] [address] [place] [address] ([phone]). Patients Morgan mccarty ([phone]) is made aware and is agreeable with discharge plan.
--- NOTE | 2021-05-25 10:53 | NUR ---
SW Facility Contact SW spoke with Jaclyn ([phone]) [facility] [address] [place] [address] and faxed covid vaccination record to [phone] per request.
--- NOTE | 2021-05-25 12:08 | NUR ---
GPS: PT WILL BE DISCHARGE TODAY. BELONGINGS AND BARRON VALUABLES GIVEN AND ACCOUNTED FOR AND RECEIVED BY PT CORRECTLY. NO SUICIDAL IDEATION NOTED. Patient will be discharged to [facility] [address] [place] [address] ([phone]) today. SW spoke with Jaclyn who confirmed they are ready to accept patient today. Patients brother Morgan ([phone]) has been informed of discharge plan. Patient is aware and agreeable with discharge plan. Patient is alert and oriented x4. Patient denies suicidal or homicidal ideation. Patient presents with appropriate mood and congruent affect. Patient will follow-up at the facility with Dr. Cm Psychiatrist and Dr. Financial Administrative Assistant Dr. Kenneth Beaulieu ([phone]). Patient was provided referral to [facility] [place] [address] ([phone]). Patients brotherMorgan ([phone]) is made aware and is agreeable with discharge plan.
[2021-05-25] MEDS: MAG HYDROX/AL HYDROX/SIMETH 30 ML LIQUID UDC PO PRN (12:21)
--- NOTE | 2021-05-25 12:30 | NUR ---
GPS: [facility] MEDICATION NOT GIVEN DUE TO WI WAS DISCHARGE ALREADY. DENIES PAIN OR DISCOMFORT.
== END 2021-05-25 12:30 | DRG 885 ==
LOC: ER 09:24 → GPS 15:39
PROVIDERS: ADMIT Psychiatry & Neurology Psychosomatic Medicine; ATTEND Internal Medicine
DX: F31.9 Bipolar disorder, unspecified (principal); M62.82 Rhabdomyolysis; T65.92XD Toxic effect of unspecified substance, intentional self-harm, subsequent encounter; E03.9 Hypothyroidism, unspecified; E66.9 Obesity, unspecified; E78.5 Hyperlipidemia, unspecified; F41.9 Anxiety disorder, unspecified; G47.00 Insomnia, unspecified; Z20.822 Contact with and (suspected) exposure to COVID-19; K21.9 Gastro-esophageal reflux disease without esophagitis; Z68.35 Body mass index [BMI] 35.0-35.9, adult; I10 Essential (primary) hypertension; Z96.641 Presence of right artificial hip joint
CPT/HCPCS: 36415; 70030-TC; 71045; 80164; 83735; 84100; 84443; 85025; 90686; 93005; 97161; A4663; G0480; J2060; J3490

== ENCOUNTER 2022-12-14 19:51 | Inpatient (IN) | payer MEDICARE, OTHER ==
[~2022-12-14] VITALS: Ht 154.9 cm; Wt 76.2 kg
[~2022-12-14 19:51] MED LIST: AMOX-430 PO; ASPI81TA31 PO; BIMA2.5D5 EACHEYE; CALC1TAB30 PO; CARV3.122 PO; DOCU100C36 PO; LISI-782 PO; OMEP40CA21 PO; SENN1TAB77 PO; SIMV10TA98 PO; SOLI10TA2 PO; THYR60TA2 PO
[2022-12-14] MEDS ORDERED: SERT25TA PO (20:18)
[2022-12-14] MEDS ORDERED: diphenhydrAMINE 50 MG/1 ML VIAL IM ONE (22:00)
[2022-12-14] MEDS ORDERED: HALOPERIDOL LACTATE 5 MG/1 ML VIAL ONE (22:00)
[2022-12-14] MEDS ORDERED: LORAZEPAM 2 MG/1 ML VIAL IM ONE (22:00)
[2022-12-14] MEDS ORDERED: HALOPERIDOL LACTATE 5 MG/1 ML VIAL IM ONE (22:00)
[2022-12-14] MEDS ORDERED: diphenhydrAMINE 50 MG/1 ML VIAL ONE (22:00)
[2022-12-14] MEDS ORDERED: LORAZEPAM 2 MG/1 ML VIAL ONE (22:01)
[2022-12-15 00:30] VITALS: BP 125/72
[2022-12-15] MEDS ORDERED: ACETAMINOPHEN 325 MG TABLET PO PRN (02:00)
[2022-12-15] MEDS ORDERED: MAG HYDROX/AL HYDROX/SIMETH 30 ML LIQUID UDC PO PRN (02:00)
[2022-12-15] MEDS ORDERED: BLOOD SUGAR DIAGNOSTIC 1 EACH STRIP VI ONE ×2 (02:00)
[2022-12-15] MEDS ORDERED: MAGNESIUM HYDROXIDE 30 ML LIQUID UDC PO PRN (02:00)
[2022-12-15 08:12] VITALS: BP 143/55
[2022-12-15] MEDS: OLANZAPINE 2.5 MG TABLET PO SCH (13:23)
[2022-12-15] MEDS: LORAZEPAM 0.5 MG TABLET PO PRN ×3 (13:23→21:40)
[2022-12-15] MEDS: OXCARBAZEPINE 150 MG TABLET PO SCH ×2 (13:23→16:27)
[2022-12-15 15:52] VITALS: BP 120/76
[2022-12-15] MEDS: CARVEDILOL 3.125 MG TABLET PO SCH (17:00)
[2022-12-15] MEDS ORDERED: AMOXICILLIN-CLAVUL 875-125MG TABLET PO SCH (17:00)
[2022-12-15] MEDS ORDERED: SENNOSIDES/DOCUSATE SODIUM TABLET PO SCH (17:00)
[2022-12-15 19:30] VITALS: BP 145/69
[2022-12-15] MEDS ORDERED: BIMATOPROST 0.01% OPHT DROP 2.5 ML BOTTLE EACHEYE SCH (21:00)
[2022-12-15] MEDS: LATANOPROST OPHT DROP 2.5 ML BOTTLE EACHEYE SCH (21:39)
[2022-12-15] MEDS: OLANZAPINE 5 MG TABLET PO SCH (21:40)
[2022-12-15] MEDS: SIMVASTATIN 10 MG TABLET PO SCH (21:40)
[2022-12-15] MEDS: TEMAZEPAM 7.5 MG CAPSULE PO PRN (23:59)
[2022-12-16] MEDS: THYROID 60 MG TABLET PO SCH (06:42)
[2022-12-16] MEDS: PANTOPRAZOLE SODIUM 40 MG TABLET.DR PO SCH (06:42)
[2022-12-16 07:57] VITALS: BP 129/61
[2022-12-16 08:27] LABS: BILIRUBIN,TOTAL 0.5 mg/dL (0.2-1.0); CREATININE 0.7 mg/dL (0.6-1.3); POTASSIUM 3.4 mmol/L (3.5-5.1); TOTAL PROTEIN, SERUM 6.5 g/dL (6.4-8.2)
[2022-12-16] MEDS ORDERED: Medication Not On Formulary EA (Sertraline Hcl (Zoloft) 25 MG) PO SCH (09:00)
[2022-12-16] MEDS ORDERED: LISINOPRIL 5 MG TABLET PO SCH (09:00)
[2022-12-16] MEDS: OXCARBAZEPINE 150 MG TABLET PO SCH ×2 (09:05→12:39)
[2022-12-16] MEDS: CARVEDILOL 3.125 MG TABLET PO SCH ×2 (09:06→16:08)
[2022-12-16] MEDS: OXYBUTYNIN XL 5 MG TABSR PO SCH (09:06)
[2022-12-16] MEDS: DOCUSATE SODIUM 100 MG CAPSULE PO SCH (09:06)
[2022-12-16] MEDS: ASPIRIN 81 MG TAB.CHEW PO SCH (09:24)
[2022-12-16] MEDS: OLANZAPINE 2.5 MG TABLET PO SCH (09:25)
[2022-12-16] MEDS: CALCIUM CARB/VITAMIN D 500MG-200UNITS TABLET PO SCH (09:26)
[2022-12-16] MEDS ORDERED: POTASSIUM CHLORIDE 20 MEQ POWDER PACKET PO ONE (13:00)
[2022-12-16 13:14] LABS: HEMATOCRIT 42.4 % (31.2-41.9); MEAN CORPUSCULAR HEMOGLOBIN 31.3 uug (24.7-32.8); MEAN CORPUSCULAR VOLUME 93.1 fL (75.5-95.3); PLATELET COUNT (AUTO) 198 K/uL (179-408)
[2022-12-16 14:15] LABS: THYROID STIMULATING HORMONE 0.265 mIU/mL (0.358-3.740)
[2022-12-16] MEDS: OXCARBAZEPINE 300 MG TABLET PO SCH (16:09)
[2022-12-16 16:33] VITALS: BP 117/65
[2022-12-16] MEDS: LORAZEPAM 0.5 MG TABLET PO PRN (18:00)
[2022-12-16] MEDS: SIMVASTATIN 10 MG TABLET PO SCH (20:07)
[2022-12-16] MEDS: OLANZAPINE 5 MG TABLET PO SCH (20:07)
[2022-12-16] MEDS: LATANOPROST OPHT DROP 2.5 ML BOTTLE EACHEYE SCH (20:08)
[2022-12-16 20:37] VITALS: BP 136/72
[2022-12-16] MEDS: TEMAZEPAM 7.5 MG CAPSULE PO PRN (21:02)
[2022-12-17] MEDS: THYROID 60 MG TABLET PO SCH (06:21)
[2022-12-17] MEDS: PANTOPRAZOLE SODIUM 40 MG TABLET.DR PO SCH (06:21)
[2022-12-17 08:00] VITALS: BP 117/58
[2022-12-17 08:25] LABS: CREATININE 0.8 mg/dL (0.6-1.3); POTASSIUM 3.5 mmol/L (3.5-5.1)
[2022-12-17] MEDS: OXCARBAZEPINE 150 MG TABLET PO SCH ×2 (08:25→08:26)
[2022-12-17] MEDS: CALCIUM CARB/VITAMIN D 500MG-200UNITS TABLET PO SCH (08:25)
[2022-12-17] MEDS: CARVEDILOL 3.125 MG TABLET PO SCH ×2 (08:26→17:17)
[2022-12-17] MEDS: DOCUSATE SODIUM 100 MG CAPSULE PO SCH (08:26)
[2022-12-17] MEDS: OXYBUTYNIN XL 5 MG TABSR PO SCH (08:27)
[2022-12-17] MEDS: ASPIRIN 81 MG TAB.CHEW PO SCH (08:28)
[2022-12-17] MEDS: OLANZAPINE 2.5 MG TABLET PO SCH (08:29)
[2022-12-17 16:17] VITALS: BP 128/60
[2022-12-17] MEDS: OXCARBAZEPINE 300 MG TABLET PO SCH (17:18)
[2022-12-17 20:02] VITALS: BP 116/62
[2022-12-17] MEDS: LORAZEPAM 0.5 MG TABLET PO PRN (20:12)
[2022-12-17] MEDS: OLANZAPINE 5 MG TABLET PO SCH (20:22)
[2022-12-17] MEDS: SIMVASTATIN 10 MG TABLET PO SCH (20:23)
[2022-12-17] MEDS: LATANOPROST OPHT DROP 2.5 ML BOTTLE EACHEYE SCH (20:23)
[2022-12-17] MEDS: TEMAZEPAM 7.5 MG CAPSULE PO PRN (22:19)
[2022-12-18] MEDS: PANTOPRAZOLE SODIUM 40 MG TABLET.DR PO SCH (06:09)
[2022-12-18] MEDS: THYROID 60 MG TABLET PO SCH (06:09)
[2022-12-18 08:00] VITALS: BP 124/89
[2022-12-18] MEDS: DOCUSATE SODIUM 100 MG CAPSULE PO SCH (08:31)
[2022-12-18] MEDS: ASPIRIN 81 MG TAB.CHEW PO SCH (08:31)
[2022-12-18] MEDS: OLANZAPINE 2.5 MG TABLET PO SCH (08:31)
[2022-12-18] MEDS: LORAZEPAM 0.5 MG TABLET PO PRN ×3 (08:32→19:44)
[2022-12-18] MEDS: OXCARBAZEPINE 150 MG TABLET PO SCH (08:32)
[2022-12-18] MEDS: CARVEDILOL 3.125 MG TABLET PO SCH ×2 (08:32→17:03)
[2022-12-18] MEDS: CALCIUM CARB/VITAMIN D 500MG-200UNITS TABLET PO SCH (08:33)
[2022-12-18] MEDS: OXYBUTYNIN XL 5 MG TABSR PO SCH (08:33)
[2022-12-18] MEDS: OXCARBAZEPINE 300 MG TABLET PO SCH ×2 (12:11→17:03)
[2022-12-18] MEDS ORDERED: OXCARBAZEPINE 150 MG TABLET PO SCH (13:00)
[2022-12-18 15:36] VITALS: BP 157/83
[2022-12-18 20:00] VITALS: BP 113/75
[2022-12-18] MEDS: SIMVASTATIN 10 MG TABLET PO SCH (20:21)
[2022-12-18] MEDS: OLANZAPINE 5 MG TABLET PO SCH (20:21)
[2022-12-18] MEDS: LATANOPROST OPHT DROP 2.5 ML BOTTLE EACHEYE SCH (20:30)
[2022-12-18] MEDS: TEMAZEPAM 7.5 MG CAPSULE PO PRN (21:47)
[2022-12-19] MEDS: PANTOPRAZOLE SODIUM 40 MG TABLET.DR PO SCH (05:55)
[2022-12-19] MEDS: LORAZEPAM 0.5 MG TABLET PO PRN (05:55)
[2022-12-19] MEDS: THYROID 60 MG TABLET PO SCH (05:56)
[2022-12-19 08:05] VITALS: BP 120/55
[2022-12-19] MEDS: OLANZAPINE 2.5 MG TABLET PO SCH (08:29)
[2022-12-19] MEDS: OXCARBAZEPINE 300 MG TABLET PO SCH ×3 (08:29→17:11)
[2022-12-19] MEDS: CALCIUM CARB/VITAMIN D 500MG-200UNITS TABLET PO SCH (08:29)
[2022-12-19] MEDS: CARVEDILOL 3.125 MG TABLET PO SCH ×2 (08:30→17:12)
[2022-12-19] MEDS: ASPIRIN 81 MG TAB.CHEW PO SCH (08:30)
[2022-12-19] MEDS: DOCUSATE SODIUM 100 MG CAPSULE PO SCH (08:30)
[2022-12-19] MEDS: OXYBUTYNIN XL 5 MG TABSR PO SCH (08:30)
[2022-12-19 16:00] VITALS: BP 141/69
[2022-12-19 20:00] VITALS: BP 140/68
[2022-12-19] MEDS: OLANZAPINE 5 MG TABLET PO SCH (20:32)
[2022-12-19] MEDS: LATANOPROST OPHT DROP 2.5 ML BOTTLE EACHEYE SCH (20:32)
[2022-12-19] MEDS: SIMVASTATIN 10 MG TABLET PO SCH (20:32)
[2022-12-20] MEDS: TEMAZEPAM 7.5 MG CAPSULE PO PRN ×2 (01:40→21:16)
[2022-12-20] MEDS ORDERED: THYROID 60 MG TABLET PO SCH (07:00)
[2022-12-20] MEDS: THYROID 60 MG TABLET PO SCH (07:11)
[2022-12-20] MEDS: PANTOPRAZOLE SODIUM 40 MG TABLET.DR PO SCH (07:11)
[2022-12-20 07:52] VITALS: BP 122/80
[2022-12-20] MEDS: DOCUSATE SODIUM 100 MG CAPSULE PO SCH (08:02)
[2022-12-20] MEDS: OXYBUTYNIN XL 5 MG TABSR PO SCH (08:02)
[2022-12-20] MEDS: OLANZAPINE 2.5 MG TABLET PO SCH (08:02)
[2022-12-20] MEDS: ASPIRIN 81 MG TAB.CHEW PO SCH (08:02)
[2022-12-20] MEDS: CALCIUM CARB/VITAMIN D 500MG-200UNITS TABLET PO SCH (08:02)
[2022-12-20] MEDS: OXCARBAZEPINE 300 MG TABLET PO SCH ×3 (08:02→16:06)
[2022-12-20] MEDS: CARVEDILOL 3.125 MG TABLET PO SCH ×2 (08:06→16:07)
[2022-12-20] MEDS: LORAZEPAM 0.5 MG TABLET PO PRN ×2 (11:39→23:04)
[2022-12-20 15:21] VITALS: BP 122/65
[2022-12-20 19:52] VITALS: BP 135/65
[2022-12-20] MEDS: LATANOPROST OPHT DROP 2.5 ML BOTTLE EACHEYE SCH (20:24)
[2022-12-20] MEDS: SIMVASTATIN 20 MG TABLET PO SCH (20:24)
[2022-12-20] MEDS: OLANZAPINE 5 MG TABLET PO SCH (20:24)
[2022-12-21] MEDS: PANTOPRAZOLE SODIUM 40 MG TABLET.DR PO SCH (06:11)
[2022-12-21] MEDS: THYROID 60 MG TABLET PO SCH (06:11)
[2022-12-21 08:16] VITALS: BP 138/62
[2022-12-21] MEDS: CALCIUM CARB/VITAMIN D 500MG-200UNITS TABLET PO SCH (08:49)
[2022-12-21] MEDS: DOCUSATE SODIUM 100 MG CAPSULE PO SCH (08:49)
[2022-12-21] MEDS: ASPIRIN 81 MG TAB.CHEW PO SCH (08:50)
[2022-12-21] MEDS: OXYBUTYNIN XL 5 MG TABSR PO SCH (08:50)
[2022-12-21] MEDS: OXCARBAZEPINE 300 MG TABLET PO SCH ×3 (08:50→16:59)
[2022-12-21] MEDS: OLANZAPINE 2.5 MG TABLET PO SCH (08:50)
[2022-12-21] MEDS: CARVEDILOL 3.125 MG TABLET PO SCH ×2 (08:51→17:01)
[2022-12-21 15:53] VITALS: BP 133/69
[2022-12-21 19:51] VITALS: BP 136/64
[2022-12-21] MEDS: OLANZAPINE 5 MG TABLET PO SCH (20:10)
[2022-12-21] MEDS: SIMVASTATIN 20 MG TABLET PO SCH (20:10)
[2022-12-21] MEDS: LATANOPROST OPHT DROP 2.5 ML BOTTLE EACHEYE SCH (20:11)
[2022-12-22] MEDS: ZOLPIDEM 5 MG TABLET PO PRN ×2 (00:56→21:51)
[2022-12-22] MEDS: THYROID 60 MG TABLET PO SCH (06:08)
[2022-12-22] MEDS: PANTOPRAZOLE SODIUM 40 MG TABLET.DR PO SCH (06:08)
[2022-12-22 07:33] VITALS: BP 134/75
[2022-12-22] MEDS: ASPIRIN 81 MG TAB.CHEW PO SCH (08:47)
[2022-12-22] MEDS: OXCARBAZEPINE 300 MG TABLET PO SCH ×3 (08:47→17:14)
[2022-12-22] MEDS: CALCIUM CARB/VITAMIN D 500MG-200UNITS TABLET PO SCH (08:47)
[2022-12-22] MEDS: DOCUSATE SODIUM 100 MG CAPSULE PO SCH (08:47)
[2022-12-22] MEDS: CARVEDILOL 3.125 MG TABLET PO SCH ×2 (08:54→17:15)
[2022-12-22] MEDS: OXYBUTYNIN XL 5 MG TABSR PO SCH (08:56)
[2022-12-22 15:53] VITALS: BP 133/52
[2022-12-22 20:10] VITALS: BP 117/69
[2022-12-22] MEDS: LATANOPROST OPHT DROP 2.5 ML BOTTLE EACHEYE SCH (21:00)
[2022-12-22] MEDS: OLANZAPINE 5 MG TABLET PO SCH (21:50)
[2022-12-22] MEDS: SIMVASTATIN 20 MG TABLET PO SCH (21:50)
[2022-12-23] MEDS: LORAZEPAM 0.5 MG TABLET PO PRN ×2 (03:08→16:00)
[2022-12-23] MEDS: ACETAMINOPHEN 325 MG TABLET PO PRN (04:49)
[2022-12-23] MEDS: PANTOPRAZOLE SODIUM 40 MG TABLET.DR PO SCH (06:06)
[2022-12-23] MEDS: THYROID 60 MG TABLET PO SCH (06:07)
[2022-12-23 08:08] VITALS: BP 135/64
[2022-12-23] MEDS: OXYBUTYNIN XL 5 MG TABSR PO SCH (08:56)
[2022-12-23] MEDS: OXCARBAZEPINE 300 MG TABLET PO SCH ×3 (08:56→17:01)
[2022-12-23] MEDS: CALCIUM CARB/VITAMIN D 500MG-200UNITS TABLET PO SCH (08:56)
[2022-12-23] MEDS: ASPIRIN 81 MG TAB.CHEW PO SCH (08:56)
[2022-12-23] MEDS: DOCUSATE SODIUM 100 MG CAPSULE PO SCH (08:56)
[2022-12-23] MEDS: CARVEDILOL 3.125 MG TABLET PO SCH ×2 (08:57→17:02)
[2022-12-23 16:23] VITALS: BP 152/71
[2022-12-23 20:00] VITALS: BP 104/48
[2022-12-23] MEDS: LATANOPROST OPHT DROP 2.5 ML BOTTLE EACHEYE SCH (21:00)
[2022-12-23] MEDS: SIMVASTATIN 20 MG TABLET PO SCH (21:55)
[2022-12-23] MEDS: OLANZAPINE 5 MG TABLET PO SCH (21:55)
[2022-12-23] MEDS: TRAZODONE 50 MG TABLET PO SCH (21:55)
[2022-12-24] MEDS: PANTOPRAZOLE SODIUM 40 MG TABLET.DR PO SCH (06:29)
[2022-12-24] MEDS: THYROID 60 MG TABLET PO SCH (06:29)
[2022-12-24] MEDS: ACETAMINOPHEN 325 MG TABLET PO PRN (07:00)
[2022-12-24 07:41] VITALS: BP 135/54
[2022-12-24] MEDS: LORAZEPAM 0.5 MG TABLET PO PRN (08:36)
[2022-12-24] MEDS: ASPIRIN 81 MG TAB.CHEW PO SCH (08:36)
[2022-12-24] MEDS: DOCUSATE SODIUM 100 MG CAPSULE PO SCH (08:36)
[2022-12-24] MEDS: CALCIUM CARB/VITAMIN D 500MG-200UNITS TABLET PO SCH (08:36)
[2022-12-24] MEDS: OXCARBAZEPINE 300 MG TABLET PO SCH ×2 (08:36→20:28)
[2022-12-24] MEDS: CARVEDILOL 3.125 MG TABLET PO SCH ×2 (08:37→17:04)
[2022-12-24] MEDS: OXYBUTYNIN XL 5 MG TABSR PO SCH (08:39)
[2022-12-24 16:15] VITALS: BP 136/71
[2022-12-24 20:06] VITALS: BP 164/77
[2022-12-24] MEDS: OLANZAPINE 5 MG TABLET PO SCH (20:28)
[2022-12-24] MEDS: SIMVASTATIN 20 MG TABLET PO SCH (20:28)
[2022-12-24] MEDS: TRAZODONE 50 MG TABLET PO SCH (20:28)
[2022-12-24] MEDS: LATANOPROST OPHT DROP 2.5 ML BOTTLE EACHEYE SCH (20:28)
[2022-12-24] MEDS: HYDROXYZINE PAMOATE 25 MG CAPSULE PO PRN (21:56)
[2022-12-25] MEDS: HYDROXYZINE PAMOATE 25 MG CAPSULE PO PRN ×3 (04:02→22:06)
[2022-12-25] MEDS: PANTOPRAZOLE SODIUM 40 MG TABLET.DR PO SCH (06:05)
[2022-12-25] MEDS: THYROID 60 MG TABLET PO SCH (06:06)
[2022-12-25 07:39] VITALS: BP 136/77
[2022-12-25] MEDS: CARVEDILOL 3.125 MG TABLET PO SCH ×2 (08:18→16:51)
[2022-12-25] MEDS: CALCIUM CARB/VITAMIN D 500MG-200UNITS TABLET PO SCH (08:18)
[2022-12-25] MEDS: OXYBUTYNIN XL 5 MG TABSR PO SCH (08:19)
[2022-12-25] MEDS: DOCUSATE SODIUM 100 MG CAPSULE PO SCH (08:19)
[2022-12-25] MEDS: OXCARBAZEPINE 300 MG TABLET PO SCH ×2 (08:19→20:19)
[2022-12-25] MEDS: ASPIRIN 81 MG TAB.CHEW PO SCH (08:19)
[2022-12-25] MEDS: ACETAMINOPHEN 325 MG TABLET PO PRN (12:33)
[2022-12-25 16:14] VITALS: BP 148/66
[2022-12-25 19:42] VITALS: BP 142/72
[2022-12-25] MEDS: TRAZODONE 100 MG TABLET PO SCH (20:19)
[2022-12-25] MEDS: OLANZAPINE 5 MG TABLET PO SCH (20:19)
[2022-12-25] MEDS: SIMVASTATIN 20 MG TABLET PO SCH (20:19)
[2022-12-25] MEDS ORDERED: TRAZODONE 50 MG TABLET PO SCH (21:00)
[2022-12-25] MEDS: LATANOPROST OPHT DROP 2.5 ML BOTTLE EACHEYE SCH (21:35)
[2022-12-26] MEDS: THYROID 60 MG TABLET PO SCH (06:02)
[2022-12-26] MEDS: PANTOPRAZOLE SODIUM 40 MG TABLET.DR PO SCH (06:02)
[2022-12-26 07:49] VITALS: BP 141/61
[2022-12-26] MEDS: CARVEDILOL 3.125 MG TABLET PO SCH ×2 (09:00→17:00)
[2022-12-26] MEDS: DOCUSATE SODIUM 100 MG CAPSULE PO SCH (09:00)
[2022-12-26] MEDS: CALCIUM CARB/VITAMIN D 500MG-200UNITS TABLET PO SCH (09:00)
[2022-12-26] MEDS: ASPIRIN 81 MG TAB.CHEW PO SCH (09:00)
[2022-12-26] MEDS: OXCARBAZEPINE 300 MG TABLET PO SCH ×2 (09:01→20:13)
[2022-12-26] MEDS: OXYBUTYNIN XL 5 MG TABSR PO SCH (09:01)
[2022-12-26] MEDS: ACETAMINOPHEN 325 MG TABLET PO PRN ×2 (11:01→22:42)
[2022-12-26 16:18] VITALS: BP 102/58
[2022-12-26] MEDS: OLANZAPINE 5 MG TABLET PO SCH (20:13)
[2022-12-26] MEDS: TRAZODONE 100 MG TABLET PO SCH (20:13)
[2022-12-26] MEDS: SIMVASTATIN 20 MG TABLET PO SCH (20:13)
[2022-12-26 21:11] VITALS: BP 122/56
[2022-12-26] MEDS: LATANOPROST OPHT DROP 2.5 ML BOTTLE EACHEYE SCH (21:46)
[2022-12-26] MEDS: HYDROXYZINE PAMOATE 25 MG CAPSULE PO PRN (22:41)
[2022-12-27] MEDS: THYROID 60 MG TABLET PO SCH (06:09)
[2022-12-27] MEDS: PANTOPRAZOLE SODIUM 40 MG TABLET.DR PO SCH (06:09)
[2022-12-27 07:30] VITALS: BP 144/55
[2022-12-27] MEDS: CALCIUM CARB/VITAMIN D 500MG-200UNITS TABLET PO SCH (08:32)
[2022-12-27] MEDS: DOCUSATE SODIUM 100 MG CAPSULE PO SCH (08:32)
[2022-12-27] MEDS: CARVEDILOL 3.125 MG TABLET PO SCH ×2 (08:32→16:58)
[2022-12-27] MEDS: OXCARBAZEPINE 300 MG TABLET PO SCH ×2 (08:32→21:01)
[2022-12-27] MEDS: OXYBUTYNIN XL 5 MG TABSR PO SCH (08:33)
[2022-12-27] MEDS: ASPIRIN 81 MG TAB.CHEW PO SCH (08:35)
[2022-12-27] MEDS: HYDROXYZINE PAMOATE 25 MG CAPSULE PO PRN (12:08)
[2022-12-27] MEDS ORDERED: BISACODYL 10 MG SUPP.RECT RC ONE (15:15)
[2022-12-27 15:18] VITALS: BP 139/91
[2022-12-27 20:04] VITALS: BP 122/78
[2022-12-27] MEDS: LATANOPROST OPHT DROP 2.5 ML BOTTLE EACHEYE SCH (21:00)
[2022-12-27] MEDS: TRAZODONE 100 MG TABLET PO SCH (21:00)
[2022-12-27] MEDS: CLONAZEPAM 1 MG TABLET PO SCH (21:00)
[2022-12-27] MEDS: SIMVASTATIN 20 MG TABLET PO SCH (21:00)
[2022-12-27] MEDS: OLANZAPINE 5 MG TABLET PO SCH (21:01)
[2022-12-27] MEDS: SENNOSIDES 1 TABLET PO SCH (21:01)
[2022-12-28] MEDS: THYROID 60 MG TABLET PO SCH (06:19)
[2022-12-28] MEDS: PANTOPRAZOLE SODIUM 40 MG TABLET.DR PO SCH (06:19)
[2022-12-28 09:40] VITALS: BP 125/70
[2022-12-28] MEDS: DOCUSATE SODIUM 100 MG CAPSULE PO SCH (09:41)
[2022-12-28] MEDS: CALCIUM CARB/VITAMIN D 500MG-200UNITS TABLET PO SCH (09:42)
[2022-12-28] MEDS: CARVEDILOL 3.125 MG TABLET PO SCH ×2 (09:42→17:31)
[2022-12-28] MEDS: ASPIRIN 81 MG TAB.CHEW PO SCH (09:42)
[2022-12-28] MEDS: OXCARBAZEPINE 300 MG TABLET PO SCH ×2 (09:42→20:25)
[2022-12-28] MEDS: OXYBUTYNIN XL 5 MG TABSR PO SCH (09:43)
[2022-12-28 13:18] LABS: HEMATOCRIT 36.9 % (31.2-41.9); MEAN CORPUSCULAR HEMOGLOBIN 31.7 uug (24.7-32.8); MEAN CORPUSCULAR VOLUME 92.4 fL (75.5-95.3); PLATELET COUNT (AUTO) 324 K/uL (179-408)
[2022-12-28 13:35] LABS: CREATININE 0.9 mg/dL (0.6-1.3); POTASSIUM 3.7 mmol/L (3.5-5.1)
[2022-12-28 15:30] VITALS: BP 102/56
[2022-12-28] MEDS: SIMVASTATIN 20 MG TABLET PO SCH (20:25)
[2022-12-28] MEDS: TRAZODONE 100 MG TABLET PO SCH (20:25)
[2022-12-28] MEDS: CLONAZEPAM 1 MG TABLET PO SCH (20:25)
[2022-12-28] MEDS: OLANZAPINE 5 MG TABLET PO SCH (20:25)
[2022-12-28] MEDS: SENNOSIDES 1 TABLET PO SCH (20:25)
[2022-12-28] MEDS: LATANOPROST OPHT DROP 2.5 ML BOTTLE EACHEYE SCH (20:29)
[2022-12-28 22:29] VITALS: BP 105/58
[2022-12-29] MEDS: HYDROXYZINE PAMOATE 25 MG CAPSULE PO PRN (00:34)
[2022-12-29] MEDS: PANTOPRAZOLE SODIUM 40 MG TABLET.DR PO SCH (06:01)
[2022-12-29] MEDS: THYROID 60 MG TABLET PO SCH (06:01)
[2022-12-29 07:14] VITALS: BP 134/70
[2022-12-29] MEDS: OXCARBAZEPINE 300 MG TABLET PO SCH ×2 (09:00→20:45)
[2022-12-29] MEDS: CALCIUM CARB/VITAMIN D 500MG-200UNITS TABLET PO SCH (09:01)
[2022-12-29] MEDS: DOCUSATE SODIUM 100 MG CAPSULE PO SCH (09:01)
[2022-12-29] MEDS: OXYBUTYNIN XL 5 MG TABSR PO SCH (09:01)
[2022-12-29] MEDS: ASPIRIN 81 MG TAB.CHEW PO SCH (09:02)
[2022-12-29] MEDS: CARVEDILOL 3.125 MG TABLET PO SCH ×2 (09:02→17:13)
[2022-12-29] MEDS: OLANZAPINE 2.5 MG TABLET PO SCH (10:00)
[2022-12-29 15:19] VITALS: BP 103/55
[2022-12-29 20:25] VITALS: BP 124/64
[2022-12-29] MEDS: LATANOPROST OPHT DROP 2.5 ML BOTTLE EACHEYE SCH (20:45)
[2022-12-29] MEDS: OLANZAPINE 5 MG TABLET PO SCH (20:45)
[2022-12-29] MEDS: CLONAZEPAM 1 MG TABLET PO SCH (20:45)
[2022-12-29] MEDS: SIMVASTATIN 20 MG TABLET PO SCH (20:45)
[2022-12-29] MEDS: SENNOSIDES 1 TABLET PO SCH (20:45)
[2022-12-29] MEDS: TRAZODONE 100 MG TABLET PO SCH (20:45)
[2022-12-30] MEDS: THYROID 60 MG TABLET PO SCH (06:44)
[2022-12-30] MEDS: PANTOPRAZOLE SODIUM 40 MG TABLET.DR PO SCH (06:45)
[2022-12-30 07:56] VITALS: BP 122/71
[2022-12-30] MEDS: OXCARBAZEPINE 300 MG TABLET PO SCH ×2 (09:15→20:46)
[2022-12-30] MEDS: ASPIRIN 81 MG TAB.CHEW PO SCH (09:17)
[2022-12-30] MEDS: OLANZAPINE 2.5 MG TABLET PO SCH (09:17)
[2022-12-30] MEDS: CALCIUM CARB/VITAMIN D 500MG-200UNITS TABLET PO SCH (09:17)
[2022-12-30] MEDS: DOCUSATE SODIUM 100 MG CAPSULE PO SCH (09:17)
[2022-12-30] MEDS: CARVEDILOL 3.125 MG TABLET PO SCH ×2 (09:17→16:25)
[2022-12-30] MEDS: OXYBUTYNIN XL 5 MG TABSR PO SCH (09:18)
[2022-12-30 16:11] VITALS: BP 113/66
[2022-12-30 20:41] VITALS: BP 130/61
[2022-12-30] MEDS: LATANOPROST OPHT DROP 2.5 ML BOTTLE EACHEYE SCH (20:45)
[2022-12-30] MEDS: CLONAZEPAM 1 MG TABLET PO SCH (20:45)
[2022-12-30] MEDS: OLANZAPINE 5 MG TABLET PO SCH (20:45)
[2022-12-30] MEDS: SENNOSIDES 1 TABLET PO SCH (20:46)
[2022-12-30] MEDS: TRAZODONE 100 MG TABLET PO SCH (20:47)
[2022-12-30] MEDS: SIMVASTATIN 20 MG TABLET PO SCH (20:47)
[2022-12-31] MEDS: THYROID 60 MG TABLET PO SCH (06:10)
[2022-12-31] MEDS: PANTOPRAZOLE SODIUM 40 MG TABLET.DR PO SCH (06:10)
[2022-12-31 08:15] VITALS: BP 128/59
[2022-12-31] MEDS: CALCIUM CARB/VITAMIN D 500MG-200UNITS TABLET PO SCH (09:00)
[2022-12-31] MEDS: ASPIRIN 81 MG TAB.CHEW PO SCH (09:00)
[2022-12-31] MEDS: OXCARBAZEPINE 300 MG TABLET PO SCH ×2 (09:00→21:44)
[2022-12-31] MEDS: OLANZAPINE 2.5 MG TABLET PO SCH (09:00)
[2022-12-31] MEDS: DOCUSATE SODIUM 100 MG CAPSULE PO SCH (09:01)
[2022-12-31] MEDS: OXYBUTYNIN XL 5 MG TABSR PO SCH (09:01)
[2022-12-31] MEDS: CARVEDILOL 3.125 MG TABLET PO SCH ×2 (09:01→17:46)
[2022-12-31 17:18] VITALS: BP 111/50
[2022-12-31 19:59] VITALS: BP 124/56
[2022-12-31] MEDS: TRAZODONE 100 MG TABLET PO SCH (21:44)
[2022-12-31] MEDS: CLONAZEPAM 1 MG TABLET PO SCH (21:44)
[2022-12-31] MEDS: SIMVASTATIN 20 MG TABLET PO SCH (21:44)
[2022-12-31] MEDS: SENNOSIDES 1 TABLET PO SCH (21:44)
[2022-12-31] MEDS: OLANZAPINE 5 MG TABLET PO SCH (21:45)
[2022-12-31] MEDS: LATANOPROST OPHT DROP 2.5 ML BOTTLE EACHEYE SCH (21:45)
[2023-01-01] MEDS: HYDROXYZINE PAMOATE 25 MG CAPSULE PO PRN (00:44)
[2023-01-01] MEDS: PANTOPRAZOLE SODIUM 40 MG TABLET.DR PO SCH (07:07)
[2023-01-01] MEDS: THYROID 60 MG TABLET PO SCH (07:07)
[2023-01-01 07:45] VITALS: BP 128/69
[2023-01-01] MEDS: OXCARBAZEPINE 300 MG TABLET PO SCH ×2 (08:45→20:25)
[2023-01-01] MEDS: CALCIUM CARB/VITAMIN D 500MG-200UNITS TABLET PO SCH (08:46)
[2023-01-01] MEDS: OLANZAPINE 2.5 MG TABLET PO SCH (08:46)
[2023-01-01] MEDS: OXYBUTYNIN XL 5 MG TABSR PO SCH (08:46)
[2023-01-01] MEDS: ASPIRIN 81 MG TAB.CHEW PO SCH (08:46)
[2023-01-01] MEDS: DOCUSATE SODIUM 100 MG CAPSULE PO SCH (08:46)
[2023-01-01] MEDS: CARVEDILOL 3.125 MG TABLET PO SCH ×2 (08:46→16:29)
[2023-01-01 16:11] VITALS: BP 96/57
[2023-01-01 19:58] VITALS: BP 106/64
[2023-01-01] MEDS: OLANZAPINE 5 MG TABLET PO SCH (20:25)
[2023-01-01] MEDS: SIMVASTATIN 20 MG TABLET PO SCH (20:25)
[2023-01-01] MEDS: SENNOSIDES 1 TABLET PO SCH (20:25)
[2023-01-01] MEDS: CLONAZEPAM 1 MG TABLET PO SCH (20:25)
[2023-01-01] MEDS: TRAZODONE 100 MG TABLET PO SCH (20:25)
[2023-01-01] MEDS: LATANOPROST OPHT DROP 2.5 ML BOTTLE EACHEYE SCH (20:26)
[2023-01-02] MEDS: PANTOPRAZOLE SODIUM 40 MG TABLET.DR PO SCH (06:40)
[2023-01-02] MEDS: THYROID 60 MG TABLET PO SCH (06:40)
[2023-01-02 08:30] VITALS: BP 103/43
[2023-01-02] MEDS: CALCIUM CARB/VITAMIN D 500MG-200UNITS TABLET PO SCH (08:47)
[2023-01-02] MEDS: DOCUSATE SODIUM 100 MG CAPSULE PO SCH (08:47)
[2023-01-02] MEDS: OLANZAPINE 2.5 MG TABLET PO SCH (08:47)
[2023-01-02] MEDS: OXCARBAZEPINE 300 MG TABLET PO SCH (08:47)
[2023-01-02 08:48] VITALS: BP 103/43
[2023-01-02] MEDS: OXYBUTYNIN XL 5 MG TABSR PO SCH (08:48)
[2023-01-02] MEDS: CARVEDILOL 3.125 MG TABLET PO SCH (08:48)
[2023-01-02] MEDS: ASPIRIN 81 MG TAB.CHEW PO SCH (08:48)
== END 2023-01-02 13:30 | DRG 885 ==
LOC: ER 19:51 → GPS 23:24
PROVIDERS: ADMIT Psychiatry & Neurology Psychosomatic Medicine; ATTEND Nurse Practitioner Acute Care
DX: F31.5 Bipolar disorder, current episode depressed, severe, with psychotic features (principal); G93.41 Metabolic encephalopathy; D68.59 Other primary thrombophilia; E78.5 Hyperlipidemia, unspecified; K21.9 Gastro-esophageal reflux disease without esophagitis; F41.9 Anxiety disorder, unspecified; Z20.822 Contact with and (suspected) exposure to COVID-19; Z79.899 Other long term (current) drug therapy; Z79.82 Long term (current) use of aspirin; E03.9 Hypothyroidism, unspecified; H40.9 Unspecified glaucoma; R26.89 Other abnormalities of gait and mobility; I10 Essential (primary) hypertension; Z91.51 Personal history of suicidal behavior; E66.9 Obesity, unspecified; Z68.31 Body mass index [BMI] 31.0-31.9, adult; K59.00 Constipation, unspecified; F60.89 Other specific personality disorders; Z96.641 Presence of right artificial hip joint; Z87.01 Personal history of pneumonia (recurrent); Z91.148 Patient's other noncompliance with medication regimen for other reason
CPT/HCPCS: 36415; 70450; 74018; 84443; 85025; 97161; A4663; J1200; J1630; J2060